=== PATIENT | male | born 1970 | race Caucasian/White ===

== ENCOUNTER 2019-03-06 18:29 | Emergency (ER) | payer OTHER ==
[~2019-03-06] VITALS: Ht 185.4 cm; Wt 82.1 kg
[~2019-03-06 18:29] MED LIST: ANUCORT-HC25 MG RC; ANUSOL-HC25 MG RC; CLARITIN10 MG PO; DEPAKOTE500 MG PO; HYDROCODONE BIT1 T11 PO; IBU-8800 MG PO; KEFLEX500 MG PO; MEDROL DOSEPAK4 MG PO; MOTRIN800 MG PO; XYLOCAINE 5%35.44 GM T; ZOCOR40 MG PO
== END 2019-03-06 19:32 | disposition home or self-care (01) ==
LOC: ED 18:29
DX: S05.01XA Injury of conjunctiva and corneal abrasion without foreign body, right eye, initial encounter (principal); W22.8XXA Striking against or struck by other objects, initial encounter; Y93.89 Activity, other specified; Y92.89 Other specified places as the place of occurrence of the external cause; Y99.8 Other external cause status

== ENCOUNTER 2019-11-20 21:20 | Emergency (ER) | payer OTHER ==
[~2019-11-20] VITALS: Wt 86.2 kg
[2019-11-20] MEDS ORDERED: Motrin,Rufen400 MG PO (23:31)
[2019-11-20] MEDS ORDERED: TAMIFLU 75MG CA75 MG PO (23:31)
== END 2019-11-20 23:51 | disposition home or self-care (01) ==
LOC: ED 21:20
DX: J11.1 Influenza due to unidentified influenza virus with other respiratory manifestations (principal); Z79.899 Other long term (current) drug therapy

== ENCOUNTER 2020-01-07 14:51 | Emergency (ER) | payer OTHER ==
[~2020-01-07] VITALS: Ht 185.4 cm; Wt 86.2 kg
[~2020-01-07 14:51] MED LIST changes: +Motrin,Rufen400 MG PO; +TAMIFLU 75MG CA75 MG PO
== END 2020-01-07 16:41 | disposition home or self-care (01) ==
LOC: ED 14:51
DX: S39.012A Strain of muscle, fascia and tendon of lower back, initial encounter (principal); E78.5 Hyperlipidemia, unspecified; Z91.048 Other nonmedicinal substance allergy status; Z79.899 Other long term (current) drug therapy; V43.42XA Person boarding or alighting a car injured in collision with other type car, initial encounter; Y93.I9 Activity, other involving external motion; Y92.488 Other paved roadways as the place of occurrence of the external cause; Y99.8 Other external cause status

== ENCOUNTER 2020-12-19 23:42 | Emergency (ER) | payer OTHER ==
[~2020-12-19] VITALS: Ht 185.4 cm; Wt 81.6 kg
[2020-12-20 00:13] LABS: BASO % 0.4 % (0.0-1.0); EOS # 0.1 10*3/uL (0.0-0.4); EOS % 1.9 % (1.0-4.0); HEMATOCRIT 38.7 % (42.0-52.0); LYMPH # 2.9 10*3/uL (1.3-4.4); LYMPH % 40.4 % (27.0-41.0); MEAN CELL VOLUME 85.4 fl (80.0-94.0); MEAN CORPUSCULAR HGB CONC 35.1 g/dl (33.0-37.0); MEAN PLATELET VOLUME 11.1 fl (9.6-12.3); MONO # 0.6 10*3/uL (0.1-1.0); MONO % 8.3 % (3.0-9.0); NEUT # 3.5 10*3/uL (2.3-7.9); NEUT % 48.7 % (47.0-73.0); PLATELET COUNT AUTOMATED 161 10*3/uL (130-400); RED BLOOD COUNT 4.53 10*6/uL (4.50-5.90); RED CELL DISTRI WIDTH 12.2 % (0-14.5); WHITE BLOOD COUNT 7.3 10*3/uL (4.8-10.8)
[2020-12-20 00:29] LABS: ALBUMIN 3.6 gm/dl (3.1-4.5); ALKALINE PHOSPHATASE 49 U/L (45-117); BUN 10 mg/dl (7-24); CHLORIDE 104 mmol/L (98-107); SGOT/AST 7 IU/L (3-35); SGPT/ALT 13 U/L (12-78); SODIUM 139 mmol/L (136-145); TOTAL PROTEIN 6.8 gm/dL (6.4-8.2)
[2020-12-20 01:41] LABS: BILIRUBIN Negative (Negative); BLOOD Negative (Negative); CLARITY Clear (Clear); COLOR Yellow (Yellow); GLUCOSE Negative (Negative); KETONE Negative (Negative); LEUKO ESTERASE Negative (Negative); NITRITE Negative (Negative); PH 7.5 (4.5-8.0); SPECIFIC GRAVITY <= 1.005 (1.001-1.030); UROBILINOGEN 0.2 E.U./dl (0.0-1.0)
[2020-12-20] MEDS ORDERED: NAPROSYN500 MG PO (01:52)
== END 2020-12-20 01:55 | disposition home or self-care (01) ==
LOC: ED 23:42
PROVIDERS: Internal Medicine
DX: N30.90 Cystitis, unspecified without hematuria (principal); M79.18 Myalgia, other site; Z79.899 Other long term (current) drug therapy

== ENCOUNTER → 2021-11-10 | Outpatient (CLI) | payer OTHER ==
[~2021-11-10] MED LIST changes: +NAPROSYN500 MG PO
== END | disposition home or self-care (01) ==
LOC: COVID19 17:37
PROVIDERS: ATTEND Internal Medicine
DX: Z20.822 Contact with and (suspected) exposure to COVID-19 (principal)

== ENCOUNTER → 2022-04-03 | Outpatient (CLI) | payer OTHER ==
[2022-04-03 10:44] LABS: BASO % 0.8 % (0.0-1.0); EOS # 0.2 10*3/uL (0.0-0.4); LYMPH # 1.7 10*3/uL (1.3-4.4); LYMPH % 33.7 % (27.0-41.0); MEAN CELL VOLUME 89.7 fl (80.0-94.0); MEAN CORPUSCULAR HGB CONC 34.6 g/dl (33.0-37.0); MEAN PLATELET VOLUME 11.4 fl (9.6-12.3); MONO # 0.5 10*3/uL (0.1-1.0); MONO % 10.7 % (3.0-9.0); NEUT # 2.6 10*3/uL (2.3-7.9); NEUT % 51.6 % (47.0-73.0); PLATELET COUNT AUTOMATED 151 10*3/uL (130-400); RED BLOOD COUNT 4.35 10*6/uL (4.50-5.90); RED CELL DISTRI WIDTH 12.5 % (0-14.5)
[2022-04-03 12:14] LABS: CHLORIDE 108 mmol/L (98-107); SODIUM 139 mmol/L (136-145)
[2022-04-03 12:30] LABS: ALKALINE PHOSPHATASE 46 U/L (45-117); BUN 12 mg/dl (7-24); CHOLESTEROL 200 mg/dL (<200); LDL CHOLESTEROL 130 mg/dL (9-159); SGOT/AST 19 IU/L (3-35); SGPT/ALT 22 U/L (12-78); TOTAL PROTEIN 6.7 gm/dL (6.4-8.2); TRIGLYCERIDES 170 mg/dl (<150); VALPROIC ACID (DEPAKENE) 79.1 ug/ml (50-100)
== END | disposition home or self-care (01) ==
LOC: LAB 09:55
PROVIDERS: ATTEND Nurse Practitioner Family
DX: G40.909 Epilepsy, unspecified, not intractable, without status epilepticus (principal); E78.5 Hyperlipidemia, unspecified; D72.829 Elevated white blood cell count, unspecified

== ENCOUNTER → 2023-01-21 | Outpatient (CLI) | payer OTHER | END | disposition home or self-care (01) | LOC: RAD 15:54 | PROVIDERS: ATTEND Nurse Practitioner Family | DX: R63.4 Abnormal weight loss (principal); G40.909 Epilepsy, unspecified, not intractable, without status epilepticus; E78.5 Hyperlipidemia, unspecified; R73.01 Impaired fasting glucose ==

== ENCOUNTER → 2023-02-18 | Outpatient (CLI) | payer OTHER | END | disposition home or self-care (01) | LOC: LAB 12:46 | PROVIDERS: ATTEND Nurse Practitioner Family | DX: R89.9 Unspecified abnormal finding in specimens from other organs, systems and tissues (principal) ==

== ENCOUNTER → 2023-03-07 | Day surgery (SDC) | payer OTHER ==
[~2023-03-07] VITALS: Ht 187.9 cm; Wt 72.6 kg
[2023-03-07 08:20] VITALS: BP 129/79
[2023-03-07 09:15] VITALS: BP 122/72
[2023-03-07 09:30] VITALS: BP 122/74
[2023-03-07 09:45] VITALS: BP 122/73
== END | disposition home or self-care (01) ==
LOC: SDC 03-05 10:15
PROVIDERS: ATTEND Surgery
DX: R63.4 Abnormal weight loss (principal); G43.909 Migraine, unspecified, not intractable, without status migrainosus; D64.9 Anemia, unspecified

== ENCOUNTER → 2023-04-25 | Outpatient (CLI) | payer OTHER | END | disposition home or self-care (01) | LOC: LAB 09:48 | PROVIDERS: ATTEND Nurse Practitioner Family | DX: G40.909 Epilepsy, unspecified, not intractable, without status epilepticus (principal) ==

== ENCOUNTER → 2023-12-09 | Outpatient (CLI) | payer OTHER ==
[2023-12-09 13:21] LABS: BASO % 0.5 % (0.0-1.0); EOS # 0.1 10*3/uL (0.0-0.4); HEMATOCRIT 37.4 % (42.0-52.0); LYMPH # 1.9 10*3/uL (1.3-4.4); MEAN CELL VOLUME 89.3 fl (80.0-94.0); MEAN CORPUSCULAR HGB 30.8 pg (27.0-31.0); MEAN CORPUSCULAR HGB CONC 34.5 g/dl (33.0-37.0); MEAN PLATELET VOLUME 11.1 fl (9.6-12.3); MONO # 0.4 10*3/uL (0.1-1.0); MONO % 7.5 % (3.0-9.0); NEUT # 3.2 10*3/uL (2.3-7.9); NEUT % 56.6 % (47.0-73.0); PLATELET COUNT AUTOMATED 134 10*3/uL (130-400); RED BLOOD COUNT 4.19 10*6/uL (4.50-5.90); RED CELL DISTRI WIDTH 12.6 % (0-14.5); WHITE BLOOD COUNT 5.6 10*3/uL (4.8-10.8)
[2023-12-09 13:44] LABS: ALKALINE PHOSPHATASE 45 U/L (46-116); BUN 11 mg/dl (9-23); CHLORIDE 104 mmol/L (98-107); CHOLESTEROL 188 mg/dL (<200); LDL CHOLESTEROL 124 mg/dL (9-159); POTASSIUM 4.4 mmol/L (3.4-5.1); TOTAL PROTEIN 6.7 gm/dL (6.0-8.0); TRIGLYCERIDES 150 mg/dl (<150); VALPROIC ACID (DEPAKENE) 80.6 ug/ml (50-100)
[2023-12-09 13:45] LABS: SGPT/ALT < 7 U/L (5-49)
== END | disposition home or self-care (01) ==
LOC: LAB 12:54
PROVIDERS: ATTEND Nurse Practitioner Family
DX: E78.5 Hyperlipidemia, unspecified (principal); G40.909 Epilepsy, unspecified, not intractable, without status epilepticus; F79 Unspecified intellectual disabilities

== ENCOUNTER 2024-03-18 23:19 | Emergency (ER) | payer OTHER ==
[~2024-03-18] VITALS: Ht 187.9 cm; Wt 81.6 kg
[2024-03-18] MEDS ORDERED: Sulfamethoxazole/Trimethopri 1 TAB TAB PO ONE (23:40)
[2024-03-19] MEDS ORDERED: SEPTDS PO (00:06)
== END 2024-03-19 00:19 | disposition home or self-care (01) ==
LOC: ED 23:19
DX: L03.116 Cellulitis of left lower limb (principal); Z79.899 Other long term (current) drug therapy

== ENCOUNTER 2024-06-22 20:39 | Emergency (ER) | payer OTHER ==
[~2024-06-22] VITALS: Ht 182.8 cm; Wt 83.9 kg
[~2024-06-22 20:39] MED LIST changes: +SEPTDS PO
[2024-06-22] MEDS ORDERED: Ketorolac Tromethamine 60 MG/2 ML VIAL IM ONE (22:05)
[2024-06-22] MEDS ORDERED: METHOCARBAMOL 500 MG TAB PO ONE (22:05)
[2024-06-22] MEDS ORDERED: NAPROXEN250 MG PO (22:34)
[2024-06-22] MEDS ORDERED: METHOCARBAMOL750 M1 PO (22:34)
== END 2024-06-22 22:36 | disposition home or self-care (01) ==
LOC: ED 20:39
DX: S16.1XXA Strain of muscle, fascia and tendon at neck level, initial encounter (principal); Z98.890 Other specified postprocedural states; V89.2XXA Person injured in unspecified motor-vehicle accident, traffic, initial encounter; Y93.89 Activity, other specified; Y92.89 Other specified places as the place of occurrence of the external cause; Y99.8 Other external cause status

== ENCOUNTER 2025-03-30 19:51 | Emergency (ER) | payer SELFPAY ==
[~2025-03-30] VITALS: Ht 185.4 cm
[~2025-03-30 19:51] MED LIST changes: +METHOCARBAMOL750 M1 PO; +NAPROXEN250 MG PO
[2025-03-30] MEDS ORDERED: NAPROSYN500 MG PO (23:16)
[2025-03-30] MEDS ORDERED: Acetaminophen/Oxycodone 5 MG/325 MG TABLET PO ONE (23:20)
== END 2025-03-30 23:28 | disposition home or self-care (01) ==
LOC: ED 19:51
DX: M25.462 Effusion, left knee (principal); M70.31 Other bursitis of elbow, right elbow; M70.32 Other bursitis of elbow, left elbow; Z79.899 Other long term (current) drug therapy; Y93.89 Activity, other specified

== ENCOUNTER 2025-04-07 21:26 | Emergency (ER) | payer OTHER ==
[~2025-04-07] VITALS: Wt 79.4 kg
[2025-04-07 23:57] LABS: BASO # 0.1 10*3/uL (0.0-0.1); BASO % 0.6 % (0.0-1.0); EOS # 0.3 10*3/uL (0.0-0.4); EOS % 3.4 % (1.0-4.0); MEAN CELL VOLUME 87.3 fl (80.0-94.0); MEAN CORPUSCULAR HGB 28.9 pg (27.0-31.0); MEAN PLATELET VOLUME 9.4 fl (9.6-12.3); MONO # 0.7 10*3/uL (0.1-1.0); MONO % 8.8 % (3.0-9.0); NEUT # 5.3 10*3/uL (2.3-7.9); NEUT % 66.1 % (47.0-73.0); NUCLEATED RED BLOOD CELL 0.0 % (0.0-0.0); NUCLEATED RED BLOOD CELL 0.0 10*3/uL (0.0-0.0); PLATELET COUNT AUTOMATED 326 10*3/uL (130-400); RED CELL DISTRI WIDTH 12.4 % (0-14.5)
[2025-04-08 00:18] LABS: BUN 12 mg/dl (9-23)
[2025-04-08] MEDS ORDERED: CEPHALEXIN500 M1 PO (08:28)
== END 2025-04-08 09:06 | disposition home or self-care (01) ==
LOC: ED 21:26
PROVIDERS: Emergency Medicine
DX: L03.116 Cellulitis of left lower limb (principal); Z79.899 Other long term (current) drug therapy

== ENCOUNTER → 2025-04-14 | Outpatient (CLI) | payer OTHER ==
[~2025-04-14] MED LIST changes: +CEPHALEXIN500 M1 PO
== END | disposition home or self-care (01) ==
LOC: RESCLI 09:18
PROVIDERS: ATTEND Internal Medicine
DX: L03.116 Cellulitis of left lower limb (principal); M71.9 Bursopathy, unspecified; Z79.899 Other long term (current) drug therapy

== ENCOUNTER → 2025-04-15 | Outpatient (CLI) | payer OTHER | END | disposition home or self-care (01) | LOC: RAD 15:56 | PROVIDERS: ATTEND Internal Medicine | DX: M70.22 Olecranon bursitis, left elbow (principal); Y93.89 Activity, other specified ==

== ENCOUNTER 2025-04-19 11:33 | Emergency (ER) | payer OTHER ==
[~2025-04-19] VITALS: Ht 185.4 cm; Wt 67.1 kg
[2025-04-19] MEDS ORDERED: Tdap Vaccine 0.5 ML SYR (Adult Vaccine) IM ONE (12:00)
[2025-04-19] MEDS ORDERED: Lidocaine Hydrochloride 2% 10 ML AMP SC ONE (12:05)
== END 2025-04-19 12:43 | disposition home or self-care (01) ==
LOC: ED 11:33
DX: S51.811A Laceration without foreign body of right forearm, initial encounter (principal); Z79.899 Other long term (current) drug therapy; W45.8XXA Other foreign body or object entering through skin, initial encounter; Y93.89 Activity, other specified; Y92.89 Other specified places as the place of occurrence of the external cause; Y99.8 Other external cause status

== ENCOUNTER → 2025-04-29 | Outpatient (CLI) | payer OTHER | END | disposition home or self-care (01) | LOC: RESCLI 07:52 | PROVIDERS: ATTEND Internal Medicine | DX: S51.811D Laceration without foreign body of right forearm, subsequent encounter (principal); G40.909 Epilepsy, unspecified, not intractable, without status epilepticus; E55.9 Vitamin D deficiency, unspecified; Z79.899 Other long term (current) drug therapy; Z98.890 Other specified postprocedural states; X58.XXXD Exposure to other specified factors, subsequent encounter ==

== ENCOUNTER → 2025-05-26 | Outpatient (CLI) | payer OTHER ==
[2025-05-26 09:44] LABS: BASO # 0.0 10*3/uL (0.0-0.1); BASO % 0.7 % (0.0-1.0); EOS # 0.1 10*3/uL (0.0-0.4); EOS % 1.3 % (1.0-4.0); MEAN CELL VOLUME 89.2 fl (80.0-94.0); MEAN CORPUSCULAR HGB 29.2 pg (27.0-31.0); MEAN PLATELET VOLUME 10.5 fl (9.6-12.3); MONO # 0.5 10*3/uL (0.1-1.0); MONO % 8.7 % (3.0-9.0); NEUT # 3.6 10*3/uL (2.3-7.9); NEUT % 65.2 % (47.0-73.0); NUCLEATED RED BLOOD CELL 0.0 % (0.0-0.0); NUCLEATED RED BLOOD CELL 0.0 10*3/uL (0.0-0.0); PLATELET COUNT AUTOMATED 211 10*3/uL (130-400); RED CELL DISTRI WIDTH 13.4 % (0-14.5)
[2025-05-26 10:12] LABS: BUN 15 mg/dl (9-23); LDL CHOLESTEROL 126 mg/dL (9-159); SGPT/ALT 13 U/L (5-49)
[2025-05-26 10:31] LABS: VITAMIN D, 25-HYDROXY 32.3 ng/mL (30-100)
== END ==
LOC: RESCLI 02:07 → LAB 02:24
PROVIDERS: ATTEND Student in an Organized Health Care Education/Training Program
DX: G40.909 Epilepsy, unspecified, not intractable, without status epilepticus (principal); E55.9 Vitamin D deficiency, unspecified; E78.5 Hyperlipidemia, unspecified; Z76.89 Persons encountering health services in other specified circumstances